=== PATIENT | female | born 1985 | race Asian ===

== ENCOUNTER 2025-05-26 07:39 | Emergency (ER) | payer BC ==
[~2025-05-26] VITALS: Ht 160 cm; Wt 57.2 kg
[2025-05-26 08:00] VITALS: TEMP 98.2
[2025-05-26] MEDS ORDERED: KETOROLAC TROMETHAMINE 15 MG/ML VIAL ONE (08:15)
[2025-05-26] MEDS ORDERED: MORPHINE SULFATE INJ 4 MG/ML DISP.SYRIN ONE (08:15)
[2025-05-26] MEDS ORDERED: ONDANSETRON HCL/PF 4 MG/2 ML VIAL ONE (08:15)
[2025-05-26] MEDS: IV NS 0.9% 1,000 ML BAG IV ONE (08:18)
[2025-05-26] MEDS: ONDANSETRON HCL/PF 4 MG/2 ML VIAL IVP ONE (08:19)
[2025-05-26] MEDS: MORPHINE SULFATE INJ 2 MG/ML DISP.SYRIN IV ONE (08:22)
[2025-05-26] MEDS: KETOROLAC TROMETHAMINE 15 MG/ML VIAL IV ONE (08:27)
[2025-05-26 08:28] LABS: PLATELET COUNT (AUTO) 308 K/uL (150-450); RED BLOOD CELL COUNT(AUTO) 4.15 MIL/uL (4.0-5.2); RED CELL DISTRIBUTION WIDTH 13.3 % (11.5-15.0); WHITE BLOOD COUNT (AUTO) 7.6 K/uL (4.3-11.0)
[2025-05-26 08:33] LABS: CALCIUM, SERUM 9.1 mg/dL (8.5-10.1); CREATININE 0.7 mg/dL (0.6-1.3); SODIUM SERUM 138.0 mmol/L (136-145); UREA NITROGEN, BLOOD 13.0 mg/dL (7-18)
[2025-05-26 08:34] LABS: APPEARANCE,URINE TURBID (CLEAR); BLOOD, URINE 3+ Ery/uL (NEGATIVE); LEUKOCYTE ESTERASE ,URINE TRACE (NEGATIVE); NITRITE, URINE POSITIVE (NEGATIVE); UGLUCOSE NEGATIVE (NEGATIVE)
[2025-05-26 08:39] LABS: ASPARTATE AMINOTRANSFERASE 23.0 U/L (15-37); TOTAL PROTEIN, SERUM 7.8 g/dL (6.4-8.2)
[2025-05-26 08:39] LABS: ADD URINE CULTURE YES; SQUAMOUS EPITHELIAL CELL,UR Rare /HPF (None Seen)
[2025-05-26] MEDS ORDERED: NAPR-1164 PO (10:09)
[2025-05-26] MEDS ORDERED: TAMS-12 PO (10:09)
[2025-05-26 11:46] VITALS: BP 108/78; O2SAT 100
== END 2025-05-26 11:42 | disposition home or self-care (01) ==
LOC: ER 07:39
DX: N20.1 Calculus of ureter (principal); F41.9 Anxiety disorder, unspecified; R10.20 Pelvic and perineal pain unspecified side; Z88.0 Allergy status to penicillin
CPT/HCPCS: 99285; 74176; 96374; 76856; 96375; 96361; 85025; 80048; 87086; 83690; 80076; 84703; 81001; 36415; 84702; J1885; J2270; J2405; J7030